=== PATIENT | male | born 1945 | race Caucasian/White ===

== ENCOUNTER → 2019-05-02 | Day surgery (SDC) | payer MEDICARE, OTHER ==
[2012-11-09 11:51] VITALS: BP 129/73
[~2019-05-02] MED LIST: LEVOTHYROXINE0.15 MG; LISINOPRIL; MEDI-FIRST ASP325 MG; PAROXETINE20 MG; THYROID
== END ==
LOC: MSO 08:17
DX: K59.00 Constipation, unspecified (principal); E03.9 Hypothyroidism, unspecified; F41.9 Anxiety disorder, unspecified; G47.33 Obstructive sleep apnea (adult) (pediatric); I48.0 Paroxysmal atrial fibrillation; I51.0 Cardiac septal defect, acquired; E78.5 Hyperlipidemia, unspecified; Z79.01 Long term (current) use of anticoagulants; E66.01 Morbid (severe) obesity due to excess calories; Z85.820 Personal history of malignant melanoma of skin; I10 Essential (primary) hypertension; Z88.5 Allergy status to narcotic agent; Z82.61 Family history of arthritis; Z82.49 Family history of ischemic heart disease and other diseases of the circulatory system; Z80.1 Family history of malignant neoplasm of trachea, bronchus and lung; Z80.9 Family history of malignant neoplasm, unspecified; Z87.891 Personal history of nicotine dependence; Z68.41 Body mass index [BMI] 40.0-44.9, adult; F32.9 Major depressive disorder, single episode, unspecified
CPT/HCPCS: 00812; J2704; J7120